=== PATIENT | male | born 1980 | race Caucasian/White ===

== ENCOUNTER 2017-01-27 15:07 | Emergency (ER) | payer SELFPAY ==
[~2017-01-27] VITALS: Ht 162.6 cm; Wt 91.0 kg
[2017-01-27] MEDS ORDERED: KETOROLAC 30MG/ML VIAL IV STA (15:34)
[2017-01-27] MEDS ORDERED: SODIUM CHLORIDE 0.9% 1,000 ML IV ONE (15:34)
[2017-01-27] MEDS ORDERED: ONDANSETRON HCL 4MG/2ML VIAL IV STA (15:34)
[2017-01-27] MEDS ORDERED: MORPHINE SULFATE 4 MG/ML CPJ (NOT FOR IM USE) IV STA (15:34)
[2017-01-27] MEDS ORDERED: CEFTRIAXONE 1 G PREMIX 50 ML IV ONE (15:45)
[2017-01-27 16:10] LABS: BASOPHILS % 0.2 % (0.0-2.0); EOSINOPHILS % 0.3 % (0.0-5.0); HEMOGLOBIN. 14.7 g/dL (14.0-18.0); LYMPHOCYTES % 13.5 % (20.0-50.0); MEAN CORPUSCULAR HEMOGLOBIN 30.2 pg (28.0-32.0); MEAN CORPUSCULAR HGB CONC 34.3 g/dL (31.0-37.0); MEAN CORPUSCULAR VOLUME 88.1 fL (80.0-94.0); MEAN PLATELET VOLUME 7.8 fl (7.4-10.4); MONOCYTES % 6.8 % (2.0-8.0); NEUTROPHILS % 79.2 % (40.0-76.0); PLATELET 207 x1000/uL (130-400); RED BLOOD CELL COUNT 4.88 mill/uL (4.7-6.1); WHITE BLOOD COUNT 18.4 x1000/uL (4.5-11.0)
[2017-01-27 16:11] LABS: CHLORIDE 107 mEq/L (98-107); INDEX HEMOLYSI 1 (1-3); INDEX ICTERIC 1 (1-4); INDEX LIPEMIC 1 (1-3); INR 1.1; PROTHROMBIN TIME 11.6 sec
[2017-01-27 16:14] LABS: ANION GAP 13; CALCIUM 9.3 mg/dL (8.5-10.1); CARBON DIOXIDE 25 mEq/L (21-32); ETHANOL BLOOD < 10 mg/dL; LIPASE 132 IU/L (73-393); UREA NITROGEN BLOOD 10 mg/dL (7-21)
[2017-01-27] MEDS ORDERED: AZITHROMYCIN 500 MG TABLET PO ONE (16:15)
[2017-01-27 16:16] LABS: ALANINE AMINOTRANSFERASE 104 IU/L (13-61); eGFR > 60 mL/min (>60)
[2017-01-27 16:20] LABS: TROPONIN I < 0.02 ng/mL (0.00-0.04)
[2017-01-27 18:15] VITALS: BP 151/97
[2017-01-27 18:27] LABS: CLARITY URINE CLOUDY (CLEAR); COLOR URINE YELLOW (YELLOW); GLUCOSE URINE NEGATIVE (NEGATIVE); KETONES URINE NEGATIVE (NEGATIVE); LEUKOCYTE ESTERASE URINE 3+ (NEGATIVE); NITRITE URINE NEGATIVE (NEGATIVE); OCCULT BLOOD URINE TRACE (NEGATIVE); PH URINE 6.5 (4.5-8.0); PROTEIN URINE NEGATIVE (NEGATIVE); SPECIFIC GRAVITY URINE 1.015 (1.005-1.030)
[2017-01-27 18:39] LABS: *AMPHETAMINES SCREEN URINE PRESUMTIVE POSITIVE (NEGATIVE); *BARBITURATES SCREEN URINE NEGATIVE (NEGATIVE); *BENZODIAZEPINES SCREEN URINE NEGATIVE (NEGATIVE); *COCAINE SCREEN URINE NEGATIVE (NEGATIVE); CANNABINOID URINE SCREEN NEGATIVE (NEGATIVE); ECSTASY MDMA SCREEN URINE NEGATIVE (NEGATIVE); METHADONE URINE SCREEN NEGATIVE (NEGATIVE); OPIATES URINE SCREEN NEGATIVE (NEGATIVE); PHENCYCLIDINE URINE SCREEN NEGATIVE (NEGATIVE)
[2017-01-27 19:11] LABS: BACTERIA URINE 3+; MUCUS URINE TRACE /lpf (NONE/TRACE); SQUAMOUS EPITHELIAL CELL URINE RARE /lpf (RARE/1+)
[2017-01-27 19:12] LABS: WBC URINE 50-100 /hpf (0-2)
== END 2017-01-27 18:45 | disposition home or self-care (01) ==
LOC: ER 18:42
DX: N20.0 Calculus of kidney (principal); N30.90 Cystitis, unspecified without hematuria; N45.1 Epididymitis
CPT/HCPCS: 36415; 74176; 76870; 80053; 80305; 81001; 83605; 83690; 84484; 85025; 85610; 87040; 87077; 87086; 87186; 93976; 96361; 96365; 96375; 99285; G0482; J0696; J1885; J7030; Z7610; J2270; J2405

== ENCOUNTER 2018-01-11 11:27 | Emergency (ER) | payer SELFPAY ==
[~2018-01-11] VITALS: Ht 165.1 cm; Wt 96.0 kg
[2018-01-11 12:07] VITALS: BP 141/98
[2018-01-11] MEDS ORDERED: IBUP-2028 PO (12:11)
== END 2018-01-11 16:52 | disposition left against medical advice (07) ==
LOC: ER 13:09
DX: M54.2 Cervicalgia (principal); M25.512 Pain in left shoulder; R50.9 Fever, unspecified; R05 Cough
CPT/HCPCS: 71045; 73030; 99284

== ENCOUNTER 2018-02-21 08:13 | Emergency (ER) | payer SELFPAY ==
[~2018-02-21] VITALS: Ht 162.6 cm; Wt 97.0 kg
[~2018-02-21 08:13] MED LIST: IBUP-2028 PO
[2018-02-21] MEDS ORDERED: TRAMADOL 50MG TABLET PO ONE (09:30)
[2018-02-21 10:16] LABS: CLARITY URINE TURBID (CLEAR); COLOR URINE YELLOW (YELLOW); KETONES URINE NEGATIVE (NEGATIVE); LEUKOCYTE ESTERASE URINE 1+ (NEGATIVE); NITRITE URINE NEGATIVE (NEGATIVE); OCCULT BLOOD URINE TRACE (NEGATIVE); PROTEIN URINE NEGATIVE (NEGATIVE); SPECIFIC GRAVITY URINE 1.017 (1.005-1.030)
[2018-02-21 11:20] LABS: BASOPHILS % 0.5 % (0.0-2.0); HEMATOCRIT. 39.2 % (42.0-52.0); HEMOGLOBIN. 13.2 g/dL (14.0-18.0); LYMPHOCYTES % 23.3 % (20.0-50.0); MEAN CORPUSCULAR HEMOGLOBIN 29.1 pg (28.0-32.0); MEAN CORPUSCULAR VOLUME 86.4 fL (80.0-94.0); MEAN PLATELET VOLUME 7.1 fl (7.4-10.4); MONOCYTES % 8.3 % (2.0-8.0); NEUTROPHILS % 66.9 % (40.0-76.0); PLATELET 404 x1000/uL (130-400); RED BLOOD CELL COUNT 4.54 mill/uL (4.7-6.1); RED CELL DISTRIBUTION WIDTH 13.2 % (11.6-14.6)
[2018-02-21 11:35] LABS: CHLORIDE 107 mEq/L (98-107)
[2018-02-21 14:14] VITALS: BP 132/91
== END 2018-02-21 16:07 | disposition home or self-care (01) ==
LOC: ER 08:13
DX: R05 Cough (principal); R10.11 Right upper quadrant pain; F12.10 Cannabis abuse, uncomplicated
CPT/HCPCS: 36415; 71045; 74176; 76705; 80053; 81003; 83690; 85025; 99285